=== PATIENT | female | born 1975 | race Caucasian/White ===

== ENCOUNTER 2018-01-31 18:40 | Inpatient (IN) | payer MEDICAID, OTHER ==
[~2018-01-31] VITALS: Ht 165.1 cm; Wt 61.2 kg
--- NOTE | 2018-01-31 19:21 | NUR ---
PT A/OX4, ABLE TO FOLLOW COMMANDS. PT C/O R RIB PAIN THAT STARTED 3 DAYS AGO, PROVOKED UPON MOVEMENT, STABBING PAIN, DOES NOT RADIATE, 12/27. PT DENIES INJURY TO AREA. VSS. PT DENIES C/P, SOB, N/V/D, DIZZINESS, HEADACHE.
[2018-01-31 20:30] LABS: BASOPHILS # (AUTO) 0.1 K/uL (0.0-8.0); BASOPHILS % (AUTO) 1.6 % (0.0-2.0); EOSINOPHILS # (AUTO) 0.4 K/uL (0.0-0.7); HEMATOCRIT 35.6 % (31.2-41.9); HEMOGLOBIN 12.1 g/dL (10.9-14.3); LYMPHOCYTES # (AUTO) 2.3 K/uL (20.0-40.0); LYMPHOCYTES % (AUTO) 37.3 % (20.5-51.5); MEAN CORPUSCULAR HEMOGLOBIN 26.7 uug (24.7-32.8); MEAN CORPUSCULAR HGB CONC 34 g/dL (32.3-35.6); MEAN CORPUSCULAR VOLUME 78.5 fL (75.5-95.3); MONOCYTES # (AUTO) 0.4 K/uL (2.0-10.0); MONOCYTES % (AUTO) 5.6 % (0.0-11.0); NEUTROPHILS # (AUTO) 3.1 K/uL (1.8-8.9); NEUTROPHILS % (AUTO) 49.5 % (38.5-71.5); PLATELET COUNT (AUTO) 282 K/uL (179-408); RED BLOOD CELL COUNT(AUTO) 4.53 MIL/uL (3.63-4.92); WHITE BLOOD COUNT (AUTO) 6.2 K/uL (3.8-11.8)
[2018-01-31 20:45] LABS: BILIRUBIN,DIRECT 0.1 mg/dL (0.0-0.2); BILIRUBIN,TOTAL 0.3 mg/dL (0.2-1.0); CREATININE 0.7 mg/dL (0.6-1.3); POTASSIUM 3.8 mmol/L (3.5-5.1); TOTAL PROTEIN, SERUM 6.7 g/dL (6.4-8.2)
--- NOTE | 2018-01-31 20:45 | NUR ---
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
[2018-01-31 20:56] LABS: *BILIRUBIN,URIN NEGATIVE (NEGATIVE); *BLOOD, URINE NEGATIVE (NEGATIVE); *CLARITY,URINE CLEAR (CLEAR); *COLOR,URINE YELLOW (YELLOW); *KETONES,URINE 1+ (NEGATIVE); *PROTEIN,URINE NEGATIVE (NEGATIVE); *UROBILINOGEN,URINE 0.2 E.U./dl (NORMAL); LEUKOCYTE ESTERASE ,URINE NEGATIVE (NEGATIVE); NITRITE, URINE NEGATIVE (NEGATIVE); UGLUCOSE NEGATIVE (NEGATIVE)
[2018-01-31 21:19] LABS: BACTERIA,URINE NONE SEEN /HPF (NONE SEEN); RBC,URINE 0-3 /HPF (0-3); SQUAMOUS EPITHELIAL CELL,UR FEW /HPF (NONE SEEN); WBC,URINE 0-3 /HPF (0-3)
[2018-01-31] MEDS ORDERED: ASPIRIN 325 MG TABLET ONE (21:24)
--- NOTE | 2018-01-31 21:25 | NUR ---
SAY HUNTER PAGED DR. CALHOUN.
[2018-01-31] MEDS ORDERED: ASPIRIN 325 MG TABLET PO ONE (21:30)
[2018-01-31] MEDS ORDERED: ONDANSETRON IV *ER 4 MG/2 ML VIAL IV ONE (21:45)
[2018-01-31] MEDS ORDERED: MORPHINE SULFATE 2 MG/1 ML DISP.SYRIN IV ONE (21:45)
[2018-01-31] MEDS ORDERED: MORPHINE SULFATE 2 MG/1 ML DISP.SYRIN ONE (21:46)
[2018-01-31] MEDS ORDERED: ONDANSETRON 4 MG/2 ML VIAL ONE (21:46)
--- NOTE | 2018-01-31 22:03 | NUR ---
Pt. admitted to TELE 221, under care of Dr. CALHOUN Belongs List completed
--- NOTE | 2018-01-31 22:03 | NUR ---
ER SPOKE W/ DR. CALHOUN RE PT'S ADMISSION. PT WILL BE ADMITTED TO TELE.
--- NOTE | 2018-01-31 22:30 | NUR ---
IN FROM ER VIA GURNEY, ADMITTED 42 YO FEMALE WITH DX OF ACUTE CORONARY SYNDROME. AAOX4, SAMI SPEAKING BUT ABLE TO MAKE NEEDS KNOWN. FRIEND AT BEDSIDE FOR TRANSLATION. NO SIGNS OF ACUTE DISTRESS NOTED AT THIS TIME. TELE MONITOR APPLIED SHOWS SINUS ERICK WITH HR OF 56. IV SITE ON LFA, PATENT AND INTACT. ROUTINE ADMISSION DONE. PLAN OF CARE INITIATED. SAFETY MEASURE INITIATED, PLACED BED ON LOW AND LOCKED POSITION WITH TWO SIDE RAILS UP AND BED ALARM ON. PT BELONGINGS AND CALL RAE WITHIN REACH.
[2018-01-31] MEDS ORDERED: ONDANSETRON 4 MG/2 ML VIAL IV PRN (22:45)
[2018-01-31] MEDS ORDERED: ZOLPIDEM 5 MG TABLET PO PRN (22:45)
[2018-01-31] MEDS ORDERED: ACETAMINOPHEN 325 MG TABLET PO PRN (22:45)
[2018-01-31] MEDS ORDERED: MORPHINE SULFATE 2 MG/1 ML DISP.SYRIN IV PRN (22:45)
[2018-01-31] MEDS ORDERED: ENALAPRILAT DIHYDRATE 1.25 MG/1 ML VIAL IV PRN (22:45)
[2018-01-31 23:43] VITALS: BP 110/54
[2018-02-01 03:38] VITALS: BP 108/52
[2018-02-01 06:43] LABS: BASOPHILS # (AUTO) 0.1 K/uL (0.0-8.0); BASOPHILS % (AUTO) 1.3 % (0.0-2.0); EOSINOPHILS # (AUTO) 0.4 K/uL (0.0-0.7); EOSINOPHILS % (AUTO) 7.8 % (0.0-7.0); HEMATOCRIT 36.3 % (31.2-41.9); HEMOGLOBIN 12.1 g/dL (10.9-14.3); LYMPHOCYTES # (AUTO) 2.2 K/uL (20.0-40.0); LYMPHOCYTES % (AUTO) 38.4 % (20.5-51.5); MEAN CORPUSCULAR HEMOGLOBIN 26.3 uug (24.7-32.8); MEAN CORPUSCULAR HGB CONC 34 g/dL (32.3-35.6); MEAN CORPUSCULAR VOLUME 78.5 fL (75.5-95.3); MONOCYTES # (AUTO) 0.4 K/uL (2.0-10.0); MONOCYTES % (AUTO) 6.1 % (0.0-11.0); NEUTROPHILS # (AUTO) 2.7 K/uL (1.8-8.9); NEUTROPHILS % (AUTO) 46.4 % (38.5-71.5); PLATELET COUNT (AUTO) 267 K/uL (179-408); RED BLOOD CELL COUNT(AUTO) 4.62 MIL/uL (3.63-4.92); WHITE BLOOD COUNT (AUTO) 5.7 K/uL (3.8-11.8)
--- NOTE | 2018-02-01 06:45 | NUR ---
PT RESTING COMFORTABLY ON BED, DENIES ANY DISCOMFORT AT THIS TIME. TELE MONITOR THROUGHOUT THE NIGHT SHOWS SINUS RHYTHM WITH PERIODS OF SINUS ERICK WHILE ASLEEP WITH HR RANGING FROM 50s-60s. IV SITE ON LFA, PATENT AND INTACT. ALL NEEDS ATTENDED AND MET. SAFE ENVIRONMENT MAINTAINED AT ALL TIMES, CALL RAE WITHIN REACH.
[2018-02-01 06:58] LABS: BILIRUBIN,TOTAL 0.5 mg/dL (0.2-1.0); CREATININE 0.7 mg/dL (0.6-1.3); POTASSIUM 3.4 mmol/L (3.5-5.1); TOTAL PROTEIN, SERUM 6.4 g/dL (6.4-8.2)
[2018-02-01] MEDS ORDERED: PANTOPRAZOLE SODIUM 40 MG TABLET.DR PO SCH (07:00)
[2018-02-01 07:18] LABS: THYROID STIMULATING HORMONE 1.534 mIU/mL (0.358-3.740)
[2018-02-01] MEDS ORDERED: ASPIRIN 325 MG TABLET PO SCH (09:00)
--- NOTE | 2018-02-01 09:20 | NUR ---
PATIENT RECEVED FROM [place] IN BED. PATIENT AWAKE, ALERT AND ORIENTED. PATIENT STATED SHE HAS HEAD ACHE, RIB PAIN AND BACK PAIN. PATIENT REFUSED MORPHINE BUT WANTED TYLENAL FOR PAIN.
[2018-02-01] MEDS ORDERED: POTASSIUM CHLORIDE 20 MEQ TAB.PRT.SR PO ONE (10:45)
[2018-02-01 11:22] VITALS: BP 93/41
[2018-02-01] MEDS ORDERED: SWABABLE VALVE TRANSFER SET EA MC ONE (14:49)
[2018-02-01] MEDS ORDERED: IOHEXOL 350 100 ML INFUS..BTL ONE (14:49)
[2018-02-01] MEDS ORDERED: IV NORMAL SALINE 250 ML IV ONE (14:49)
[2018-02-01 15:55] VITALS: BP 97/47
--- NOTE | 2018-02-01 16:00 | NUR ---
NOTIFIED DR. ALEJANDRE OF CT ANGION OF CHEST RESULTS. ASKED TO DC JAQUELIN VAZQUEZ.
[2018-02-01] MEDS ORDERED: ATORVASTATIN 20 MG TABLET PO SCH (21:00)
== END 2018-02-01 18:40 | disposition home or self-care (01) | DRG 203 ==
LOC: ER 18:41 → TELE 22:14
PROVIDERS: ADMIT Internal Medicine; ATTEND Nurse Practitioner Acute Care
DX: M94.0 Chondrocostal junction syndrome [Tietze] (principal); E78.5 Hyperlipidemia, unspecified; E87.6 Hypokalemia; R51 Headache; Z86.11 Personal history of tuberculosis; Z82.49 Family history of ischemic heart disease and other diseases of the circulatory system; R94.39 Abnormal result of other cardiovascular function study; M79.605 Pain in left leg; M79.604 Pain in right leg
CPT/HCPCS: 36415; 70030-TC; 71045; 71275; 83550; 83690; 83735; 84100; 84443; 85025; 85730; 93005; 93307; A4663; G0378; J2270; J2405; J7050; Q9967

== ENCOUNTER 2021-06-18 15:57 | Emergency (ER) | payer OTHER ==
[~2021-06-18] VITALS: Ht 160 cm; Wt 59.0 kg
[2021-06-18] MEDS ORDERED: ASPIRIN 325 MG TABLET PO ONE (17:00)
[2021-06-18] MEDS ORDERED: ASPIRIN 81 MG TAB.CHEW ONE (17:04)
--- NOTE | 2021-06-18 17:09 | NUR ---
12 LEAD EKG DONE. PLACED ON A MONITOR, LABS DRAWN
[2021-06-18 17:13] LABS: HEMATOCRIT 36.5 % (31.2-41.9); MEAN CORPUSCULAR HEMOGLOBIN 25.7 uug (24.7-32.8); PLATELET COUNT (AUTO) 267 K/uL (179-408)
[2021-06-18 17:32] LABS: ALANINE AMINOTRANSFERASE 22 U/L (14-59); ALKALINE PHOSPHATASE 43 U/L (50-136); ASPARTATE AMINOTRANSFERASE 6 U/L (15-37); BILIRUBIN,TOTAL 0.3 mg/dL (0.2-1.0); CARBON DIOXIDE 28 mmol/L (21-32); CHLORIDE 105 mmol/L (98-107); CREATININE 0.6 mg/dL (0.6-1.3); GLUCOSE 96 mg/dL (74-106); POTASSIUM 3.5 mmol/L (3.5-5.1); TOTAL PROTEIN, SERUM 6.6 g/dL (6.4-8.2); UREA NITROGEN, BLOOD 12 mg/dL (7-18)
--- NOTE | 2021-06-18 18:57 | NUR ---
copies of all test results given. Patients states she will follow up with her PMD on Monday DC and follow up instructions given and explained to patient and sister who state they understand all instructions
== END 2021-06-18 19:00 | disposition home or self-care (01) ==
LOC: ER 16:04
DX: N95.1 Menopausal and female climacteric states (principal); R00.2 Palpitations; R00.1 Bradycardia, unspecified; F41.9 Anxiety disorder, unspecified; R51.9 Headache, unspecified
CPT/HCPCS: 36415; 71045; 84443; 84484; 85025; A4663

== ENCOUNTER 2023-03-21 14:09 | Emergency (ER) | payer OTHER ==
[~2023-03-21] VITALS: Ht 160 cm; Wt 58.1 kg
[2023-03-21 17:14] VITALS: BP 107/70; O2SAT 96
== END 2023-03-21 17:16 | disposition home or self-care (01) ==
LOC: ER 14:09
DX: M79.605 Pain in left leg (principal); F41.9 Anxiety disorder, unspecified; E78.5 Hyperlipidemia, unspecified
CPT/HCPCS: A4606; A4663

== ENCOUNTER 2024-03-14 20:09 | Emergency (ER) | payer OTHER ==
[2024-03-14] MEDS ORDERED: CEFTRIAXONE /D5W 50ML IVPB **ER PYXIS IV ONE (20:30)
[2024-03-14] MEDS ORDERED: DEXAMETHASONE SOD PHOSPHATE 10 MG INJ ONE (21:12)
[2024-03-14] MEDS ORDERED: KETOROLAC TROMETHAMINE 30 MG INJ ONE (21:12)
[2024-03-14] MEDS ORDERED: ACETAMINOPHEN 500 MG TABLET ONE (21:41)
== END 2024-03-14 21:40 | disposition left against medical advice (07) ==
LOC: ER 20:09
DX: M54.9 Dorsalgia, unspecified (principal); Z53.21 Procedure and treatment not carried out due to patient leaving prior to being seen by health care provider
CPT/HCPCS: J0696; J1100; J1885; A9150